=== PATIENT | female | born 1945 ===

== ENCOUNTER 2016-08-10 17:34 | Inpatient (IN) ==
--- NOTE | 2016-08-10 18:53 | XRay Report ---
History is chest pain and shortness of breath Comparison 04/26/2016 The heart is normal in size the Mediport catheter present. Hilar contours unchanged The lungs are mildly under aerated with mild patchy and strandy opacities in both lung bases mildly less pronounced than on the prior studies. The upper lung zones are clear. Impression: Mild patchy bilateral basilar pulmonary opacities less pronounced than on the prior study. Numerous nodules seen in these areas on prior CT. No new parenchymal opacities seen PROCEDURE INTERPRETED AT [facility] DEPARTMENT OF RADIOLOGY Final Report Signed by: Dr. Sierra López
--- NOTE | 2016-08-10 18:59 | Emergency Department Note ---
IKrzysztof Emily, am scribing for, and in the presence of, Maksim Craig MD 18: 44. Rafa De León Robert M, MD, personally performed the services described in this documentation, ascribed by Irina Blankenship in my presence, and it is both accurate and complete [id number] . Arrival - Arrival Chief Complaint: Non-Specific Stated Complaint: swelling of ankles/cancer patient ED Nursing Triage Note: C/O HAVING ANKLE SWELLING BILATERAL ON SATURDAY., STATES SHE IS CURRENTLY BEING TREATED BY STAGE 4 KIDNEY CANCER, STATES HERE LAST CHEMO WAS IN MAY, ALSO STATES HER EYES ARE BECOMING YELLOW SINCE LAST EVENING, + TEMP., + CHILLS, + HEADACHE, ALSO STATES HER URINE IS DARK BROWN Mode of Arrival: Ambulatory Limitations: No Limitations Source: Patient - History of Present Illness HPI Narrative: Pt is a 71 y/o female who came to ED with c/o swelling in lower extremities, dizziness, and jaundice that has been ongoing since Saturday, August 06, 2016, but has worsened today. Pt is in Stage IV Kidney CA under supervision of Dr. Pelayo. Family states last scan showed that chemo (last in May 2016) was not effective and has stopped due to it spreading and becoming larger. Pt was taking voltaren medication but stopped about 2 weeks ago due to causing acid reflux and abdomen pain. Pt notes she doesn't have those sxs when not taking it. Pt has associated sxs of chills, SHARMA and weight loss and febrile in triage. No other complaint/pain in ED. Onset (ago): day(s) Consistency: constant Severity: moderate Severity scale (1-10): 5 Quality: other (swelling) Allergies/Adverse Reactions: Allergies Allergy/AdvReac Type Severity Reaction Status Date / Time Penicillins Allergy Mild RASH Verified 08/10/16 17:52 sulfamethoxazole Allergy Mild RASH Verified 08/10/16 17:52 [From ] trimethoprim [From ] Allergy Mild RASH Verified 08/10/16 17:52 Home Medications: Home Medications Medication Instructions Recorded Confirmed Type Aspirin [Ecotrin] 81 mg PO DAILY 10/10/15 08/10/16 History Linagliptin [Tradjenta] 5 mg PO DAILY 10/10/15 08/10/16 History Clorazepate [Tranxene] 3.75 mg PO BID PRN 03/07/16 08/10/16 History Ondansetron Odt Tab [Zofran Odt] 8 mg PO Q8H PRN 03/07/16 08/10/16 History Saxagliptin HCl [Onglyza] 5 mg PO DAILY 03/07/16 08/10/16 History Tramadol HCl [Tramadol Tab] 50 - 100 mg PO Q8H PRN 03/07/16 08/10/16 History metFORMIN [Glucophage] 1,000 mg PO BID W/MEALS 03/07/16 08/10/16 History Cyproheptadine Tab [Periactin Tab] 4 mg PO TID 05/16/16 08/10/16 History amLODIPine [Norvasc] 5 mg PO DAILY 05/16/16 08/10/16 History Cyanocobalamin (Vitamin B-12) 5,000 mcg PO DAILY 08/10/16 08/10/16 History [Vitamin B-12] Dexamethasone [Dexamethasone Tab] 2 mg PO DAILY 08/10/16 08/10/16 History Diphenoxylate/Atrop 2.5-0.025 1 tablet PO BID 08/10/16 08/10/16 History [Lomotil Tab] Glipizide [Glipizide ER] 5 mg PO BID 08/10/16 08/10/16 History Hydrocodone/Acetaminophen 1 each PO Q4-6H PRN 08/10/16 08/10/16 History [Hydrocodon-Acetaminophn 10-325] Levofloxacin Tab [Levaquin Tab] 500 mg PO DAILY 08/10/16 08/10/16 History Metoprolol Succinate Xl [Toprol Xl] 50 mg PO DAILY 08/10/16 08/10/16 History Pazopanib HCl [Votrient] 600 mg PO TID 08/10/16 08/10/16 History Zolpidem [Ambien] 5 mg PO BEDTIME PRN 08/10/16 08/10/16 History Review of System - Review of System 12 point system: reviewed and no additional remarkable complaints except as stated - Review of System Constitutional: Present: chills, fever, weakness, weight loss Respiratory: Absent: respiratory distress Cardiovascular: Absent: chest pain Gastrointestinal: Absent: abdominal pain Musculoskeletal: Present: other (edema in lower extremities). Absent: arm pain , back pain, leg pain, neck pain Skin: Present: other (yellowing). Absent: rash Neurological: Present: headache, other (dizziness) Medical,Surgical,& Family Hx - Medical History Cardio: History of: Cardiac Dysrhythmia (heart murmur), Hypertension, Cardiovascular Problems (dr arechiga.) Neurology: No history of: Seizures HEENT: History of: Eye Problem (glasses), HEENT Problems (sinus surgery) Endocrine: History of: Diabetes Mellitus (NIDDM) Respiratory: No history of: Respiratory Problems (sinus surgery. 10 yrs ago. flu vac- yes 2016; pneu vac- yes 2016) Renal: History of: Renal (Kidney) Cancer Gastrointestinal: History of: GERD (rare), GI Problems (constipation) Musculoskeletal: No history of: Musculoskeletal Problems Hematology: History of: Anemia Reproductive: No history of: Reproductive Problems Other: History of: Cancer (kidney, lt lung, pancreas) - Surgical History HEENT Surgeries: Surgical HX of: Eye Surgery (bilateral cataract surgery) Reproductive Surgeries: Surgical HX of;: Hysterectomy - Family History Family History: Reports;: Family Diabetes (brothers), Family Heart Disease ( mother), Family Hypertension (mother) - Social History Smoking Status: Never smoker Frequency of Alcohol Use: None Type of Drug Use: None Exam Vital Signs: Vital Signs Temperature 100.7 F H 08/10/16 18:27 Pulse Rate 78 08/10/16 18:30 Respiratory Rate 16 08/10/16 18:27 Blood Pressure 118/45 08/10/16 18:30 O2 Sat by Pulse Oximetry 100 08/10/16 18:30 - General General appearance: alert, in no apparent distress - Head Head exam: Present: atraumatic, normocephalic - Eye Eye exam: Present: PERRL, EOMI - ENT ENT exam: Present: mucous membranes moist. Absent: mucous membranes dry - Neck Neck exam: Present: full ROM. Absent: tenderness - Chest Chest inspection: Present: symmetric chest wall rise. Absent: tenderness - Respiratory Respiratory exam: Present: normal lung sounds bilaterally. Absent: respiratory distress - Cardiovascular Cardiovascular exam: Present: regular rate, normal rhythm, normal heart sounds - Abdominal Exam Abdominal exam: Present: soft. Absent: tenderness - Extremities Exam Extremities exam: Present: full ROM. Absent: tenderness - Neurological Exam Neurological exam: Present: alert, oriented X3, CN II-XII intact. Absent: motor sensory deficit - Psychiatric Psychiatric exam: Present: normal affect, normal mood - Skin Skin exam: Present: warm. Absent: normal color (jaundice) Course - Reevaluation(s) Reevaluation #1: Patient demonstrates evidence of cholangitis with fever, elevated transaminases and bilirubin, and worsening mass size/load in the pancreatic head although there is no intrahepatic biliary ductal dilatation. I will admit the patient to Dr. Pelayo. Time: 20:19 - Consultations Consultation #1: Discussed the patient with Dr. Pelayo who will admit the patient. Time: 20:18 Results - Labs CBC & BMP: 08/10/16 18:47 08/10/16 18:47 Lab Results: I have reviewed the patients labs Labs: Lab Results WBC 6.9 T/CUMM (4-12) 08/10/16 18:47 RBC 3.79 MC/CUMM (3.8-5.5) L 08/10/16 18:47 Hgb 9.6 GM/DL (12.0-16.0) L 08/10/16 18:47 Hct 30.4 VOL% (35.7-47.0) L 08/10/16 18:47 MCV 80.2 FL (87-102) L 08/10/16 18:47 MCH 25 PG (27-34) L 08/10/16 18:47 MCHC 31.6 GM/DL (32-36) L 08/10/16 18:47 RDW 23.9 % (9.3-17.3) H 08/10/16 18:47 Plt Count 315 T/CUMM (130-400) 08/10/16 18:47 MPV 10.3 FL (9.6-12.0) 08/10/16 18:47 Neut % (Auto) 60.9 % (38.7-73.9) 08/10/16 18:47 Lymph % (Auto) 22.6 % (21.3-54.2) 08/10/16 18:47 [place] % (Auto) 13.5 % (1.7-12.7) H 08/10/16 18:47 Eos % (Auto) 1.7 % (0.00-10.9) 08/10/16 18:47 Baso % (Auto) 0.6 % (0.0-0.8) 08/10/16 18:47 Neut # (Auto) 4.2 10*3/uL (1.4-7.4) 08/10/16 18:47 Lymph # (Auto) 1.6 10*3/uL (1.4-4.0) 08/10/16 18:47 [place] # (Auto) 0.9 10*3/uL (0.11-0.8) H 08/10/16 18:47 Eos # (Auto) 0.1 10*3/uL (0.0-0.87) 08/10/16 18:47 Baso # (Auto) 0.0 10*3/uL (0.0-0.2) 08/10/16 18:47 Immature Gran % 0.7 % 08/10/16 18:47 Nucleated RBC % 0.0 /100WBC 08/10/16 18:47 Immature Gran # 0.05 # 08/10/16 18:47 Nucleated RBCs # 0.00 10*3/uL 08/10/16 18:47 Sodium 134 MMOL/L (136-145) L 08/10/16 18:47 Potassium 4.8 MMOL/L (3.5-5.1) 08/10/16 18:47 Chloride 100 MMOL/L (98-107) 08/10/16 18:47 Carbon Dioxide 22 MMOL/L (21-32) 08/10/16 18:47 Anion Gap 16.8 MMOL/L (5.0-15.0) H 08/10/16 18:47 BUN 22 MG/DL (7-18) H 08/10/16 18:47 Creatinine 1.00 MG/DL (0.55-1.02) 08/10/16 18:47 GFR Calculation 49 ML/MIN 08/10/16 18:47 BUN/Creatinine Ratio 22.00 RATIO (6.00-20.00) H 08/10/16 18:47 Glucose 447 MG/DL (74-106) H 08/10/16 18:47 Calculated Osmolality 289.2 MOS/KG (273-304) 08/10/16 18:47 Calcium 7.9 MG/DL (8.5-10.1) L 08/10/16 18:47 Total Bilirubin 4.80 MG/DL (0.2-1.0) H 08/10/16 18:47 Direct Bilirubin 4.1 MG/DL (0.0-0.20) H 08/10/16 18:47 AST 1060 U/L (0-37) H 08/10/16 18:47 ALT 1149 U/L (13-56) H 08/10/16 18:47 Alkaline Phosphatase 832 U/L (45-117) H 08/10/16 18:47 Total Protein 5.9 G/DL (6.4-8.3) L 08/10/16 18:47 Albumin 2.2 G/DL (3.4-5.0) L 08/10/16 18:47 Globulin 3.7 G/DL (2.3-3.5) H 08/10/16 18:47 Albumin/Globulin Ratio 0.5 RATIO (1.1-2.2) L 08/10/16 18:47 Amylase 33 U/L (25-115) 08/10/16 18:47 Lipase 103.0 U/L (73-393) 08/10/16 18:47 Disposition Clinical Impression: Elevated transaminase level, Hyperbilirubinemia, Stage IV renal cancer Case discussed with: patient, patient's family Disposition: Still a Patient Condition: Stable Time of Disposition: 20:19
[2016-08-10 19:02] LABS: Basophils % 0.6 % (0.0-0.8); Eosinophils # 0.1 10*3/uL (0.0-0.87); Eosinophils % 1.7 % (0.00-10.9); Hematocrit 30.4 VOL% (35.7-47.0); Hemoglobin 9.6 GM/DL (12.0-16.0); Immature Granulocytes % 0.7 %; Immature Granulocytes Absolute 0.05 #; Lymphocytes # 1.6 10*3/uL (1.4-4.0); Lymphocytes % 22.6 % (21.3-54.2); Mean Corpuscular HGB Conc 31.6 GM/DL (32-36); Mean Corpuscular Hemoglobin 25 PG (27-34); Mean Corpuscular Volume 80.2 FL (87-102); Mean Platelet Volume 10.3 FL (9.6-12.0); Monocytes # 0.9 10*3/uL (0.11-0.8); Monocytes % 13.5 % (1.7-12.7); Neutrophils # 4.2 10*3/uL (1.4-7.4); Neutrophils % 60.9 % (38.7-73.9); Platelet Count 315 T/CUMM (130-400); Red Blood Count 3.79 MC/CUMM (3.8-5.5); Red Cell Distribution Width 23.9 % (9.3-17.3); White Blood Count 6.9 T/CUMM (4-12)
[2016-08-10 19:39] LABS: Albumin 2.2 G/DL (3.4-5.0); Bilirubin,Total 4.8 MG/DL (0.2-1.0); Calcium 7.9 MG/DL (8.5-10.1); Osmolality,Calculated 289.2 MOS/KG (273-304); Potassium 4.8 MMOL/L (3.5-5.1); Total Protein 5.9 G/DL (6.4-8.3)
--- NOTE | 2016-08-10 20:11 | Ultrasound Report ---
History is fever and jaundice The liver is 14.4 cm in length. Gallbladder is not well-distended. No shadowing stones seen. Gallbladder wall thickness measures up to 5 mm likely related to incomplete distention No biliary ductal dilatation is seen Multiple lobular solid masses throughout the pancreas measuring up to 3.6 cm No right renal hydronephrosis seen. There is a large, 5.5 cm lobular irregular area of mass effect at the lower pole of the right kidney Visualized IVC and aorta are normal in size Impression: 1. At least 5.5 cm solid mass in the right kidney 2. Multiple up to 3.6 cm masses in the region of the pancreas could be pancreatic masses or adjacent adenopathy 3. Gallbladder wall thickening likely related to incomplete distention PROCEDURE INTERPRETED AT [facility] DEPARTMENT OF RADIOLOGY Final Report Signed by: Dr. Sierra López
[2016-08-10] MEDS ORDERED: traMADol 50 MG TABLET PO PRN (20:23)
[2016-08-10] MEDS ORDERED: ONDANSETRON 4 MG/2 ML VIAL IV PRN (20:23)
[2016-08-10] MEDS ORDERED: ALUMINUM/MAGNES/SIMETH MAX STR 30 ML UDCUP PO PRN (20:23)
[2016-08-10] MEDS ORDERED: TEMAZEPAM 7.5 MG CAPSULE PO PRN (20:23)
[2016-08-10] MEDS ORDERED: diphenhydrAMINE CAP 25 MG CAPSULE PO PRN (20:23)
[2016-08-10] MEDS ORDERED: guaiFENesin 200 MG/10 ML UDCUP PO PRN (20:23)
[2016-08-10] MEDS ORDERED: ALPRAZolam 0.25 MG TABLET PO PRN (20:23)
[2016-08-10] MEDS ORDERED: chlorproMAZINE INJ 50 MG in SODIUM CHLORIDE 0.9% 100 ML IV PRN (20:23)
[2016-08-10] MEDS ORDERED: chlorproMAZINE INJ 25 MG in SODIUM CHLORIDE 0.9% 100 ML IV PRN (20:23)
[2016-08-10] MEDS ORDERED: LACTULOSE 20 GM/30 ML UDCUP PO PRN (20:23)
[2016-08-10] MEDS ORDERED: MYLANTA/LIDO VISC 2:1 300 ML BOTTLE SWISH/SWAL PRN (20:23)
[2016-08-10] MEDS ORDERED: chlorproMAZINE 25 MG TABLET PO PRN (20:23)
[2016-08-10] MEDS ORDERED: MYLANTA/LIDO VISC 2:1 300 ML BOTTLE SWISH/SPIT PRN (20:23)
[2016-08-10] MEDS ORDERED: PROMETHAZINE INJ 25 MG in SODIUM CHLORIDE 0.9% 50 ML IV PRN (20:23)
[2016-08-10] MEDS: metroNIDAZOLE INJ 500 MG in PREMIX 1 EACH IV SCH (21:35)
[2016-08-10] MEDS: SODIUM CHLORIDE 0.9% 1,000 ML IV SCH (21:38)
[2016-08-10] MEDS: CLINDAMYCIN INJ 600 MG in PREMIX 1 EACH IV SCH (21:39)
[2016-08-11] MEDS: CLINDAMYCIN INJ 600 MG in PREMIX 1 EACH IV SCH ×4 (02:45→21:14)
[2016-08-11] MEDS: metroNIDAZOLE INJ 500 MG in PREMIX 1 EACH IV SCH ×3 (05:01→22:04)
[2016-08-11] MEDS: PANTOPRAZOLE 40 MG TABLET PO SCH (09:00)
[2016-08-11] MEDS ORDERED: CLORAZEPATE 3.75 MG TABLET PO PRN (11:28)
[2016-08-11] MEDS ORDERED: ONDANSETRON ODT 4 MG TABLET PO PRN (11:28)
[2016-08-11] MEDS ORDERED: ZALEPLON 5 MG CAPSULE PO PRN (11:28)
[2016-08-11] MEDS ORDERED: IBUPROFEN 400 MG TABLET PO PRN (11:32)
--- NOTE | 2016-08-11 11:37 | Oncology History&Physical ---
Assessment and Plan (1) Abdominal pain Status: Acute Assessment and plan: We will monitor the gallbladder closely. Continue antibiotics. Her fever could also be related to perirectal abscess which was manually drained at bedside by myself this morning. The elevated bilirubin and liver enzymes on give me some concern for autoimmune hepatitis given her prior immunotherapy treatments and I will start on IV steroids for that reason. We will need to closely monitor her blood glucose levels with sliding scale and hepatically dosed glipizide. I am holding her Tradjenta and Metformin at the present time. Current Visit: No History of Present Illness Chief complaint: Abdominal pain History of present illness: Ms. Yin is a 71 year old female With metastatic renal cell carcinoma. The patient received several months of frontline on Depo therapy immunotherapy as treatment for her tumor. In May a CT was notable for progression and she was switched to Votrient approximate 400 mg daily. Date of last office visit is not available at this time. Brought to emergency room with abdominal pain. She did have some tenderness and guarding in right upper quadrant and a gallbladder ultrasound showed thickening but no definite gallstones. She was admitted overnight and placed on antibiotics. Last bowel movement 48 hours ago. Positive for decreased p.o. intake. She also was seen approximately 1 week [facility] She was given antibiotic with 2 doses remaining. By review of home medications this is felt to be levofloxacin. Also of note was a significant elevation in her transaminases and total bilirubin. Her family states she has not taken any oral chemotherapy pills 2 weeks. She has had fever this morning up to 101 with blood cultures and urinalysis ordered. Home Medications Medication Instructions Recorded Confirmed Type Aspirin [Ecotrin] 81 mg PO DAILY 10/10/15 08/10/16 History Linagliptin [Tradjenta] 5 mg PO DAILY 10/10/15 08/10/16 History Clorazepate [Tranxene] 3.75 mg PO BID PRN 03/07/16 08/10/16 History Ondansetron Odt Tab [Zofran Odt] 8 mg PO Q8H PRN 03/07/16 08/10/16 History Saxagliptin HCl [Onglyza] 5 mg PO DAILY 03/07/16 08/10/16 History Tramadol HCl [Tramadol Tab] 50 - 100 mg PO Q8H PRN 03/07/16 08/10/16 History metFORMIN [Glucophage] 1,000 mg PO BID W/MEALS 03/07/16 08/10/16 History Cyproheptadine Tab [Periactin Tab] 4 mg PO TID 05/16/16 08/10/16 History amLODIPine [Norvasc] 5 mg PO DAILY 05/16/16 08/10/16 History Cyanocobalamin (Vitamin B-12) 5,000 mcg PO DAILY 08/10/16 08/10/16 History [Vitamin B-12] Dexamethasone [Dexamethasone Tab] 2 mg PO DAILY 08/10/16 08/10/16 History Diphenoxylate/Atrop 2.5-0.025 1 tablet PO BID 08/10/16 08/10/16 History [Lomotil Tab] Glipizide [Glipizide ER] 5 mg PO BID 08/10/16 08/10/16 History Hydrocodone/Acetaminophen 1 each PO Q4-6H PRN 08/10/16 08/10/16 History [Hydrocodon-Acetaminophn 10-325] Levofloxacin Tab [Levaquin Tab] 500 mg PO DAILY 08/10/16 08/10/16 History Metoprolol Succinate Xl [Toprol Xl] 50 mg PO DAILY 08/10/16 08/10/16 History Pazopanib HCl [Votrient] 600 mg PO TID 08/10/16 08/10/16 History Zolpidem [Ambien] 5 mg PO BEDTIME PRN 08/10/16 08/10/16 History Allergies Allergy/AdvReac Type Severity Reaction Status Date / Time Penicillins Allergy Mild RASH Verified 08/10/16 17:52 sulfamethoxazole Allergy Mild RASH Verified 08/10/16 17:52 [From ] trimethoprim [From ] Allergy Mild RASH Verified 08/10/16 17:52 Medical,Surgical,& Family Hx - Medical History Cardio: History of: Cardiac Dysrhythmia (heart murmur), Hypertension, Cardiovascular Problems (dr arechiga.) Neurology: No history of: Seizures HEENT: History of: Eye Problem (glasses), HEENT Problems (sinus surgery) Endocrine: History of: Diabetes Mellitus (NIDDM) Respiratory: No history of: Respiratory Problems (sinus surgery. 10 yrs ago. flu vac- yes 2015; pneu vac- yes 2016) Renal: History of: Renal (Kidney) Cancer Gastrointestinal: History of: GERD (rare), GI Problems (constipation) Musculoskeletal: No history of: Musculoskeletal Problems Hematology: History of: Anemia Reproductive: No history of: Reproductive Problems Other: History of: Cancer (kidney, lt lung, pancreas) - Surgical History HEENT Surgeries: Surgical HX of: Eye Surgery (bilateral cataract surgery) Reproductive Surgeries: Surgical HX of;: Hysterectomy - Family History Family History: Reports;: Family Diabetes (brothers), Family Heart Disease ( mother), Family Hypertension (mother) - Social History Smoking Status: Never smoker Frequency of Alcohol Use: None Type of Drug Use: None - Constitutional Constitutional: Present: chills, fatigue, fever(s), malaise, weakness - EENT Eye: Absent: loss of vision Ears: Absent: ear discharge, ear pain, tinnitus Nose, mouth and throat: Absent: dysphagia, neck mass, sore throat, vertigo - Cardiovascular Cardiovascular ROS IM: Absent: edema - Respiratory Respiratory: Absent: cough, dyspnea, hemoptysis - Gastrointestinal Gastrointestinal: Present: abdominal pain, change in bowel habits. Absent: constipation, diarrhea - Genitourinary Genitourinary ROS female: Present: dysuria. Absent: hematuria - Musculoskeletal Musculoskeletal ROS: Absent: back pain - Psychiatric Psychiatric General: Absent: anxiety - Hematologic/Lymphatic Hematologic/Lymphatic: Absent: easy bleeding Exam - Constitutional Vitals: Period Temp Pulse Resp BP Sys/Blevins Pulse Ox Last 24 Hr 97.7 F-101.6 F 72-88 16-20 115-176/46-96 96-99 General appearance: no acute distress, under weight - Head Head Exam: Present: normal inspection, normocephalic - Eye Eye Exam: Present: EOMI, scleral icterus. Absent: conjunctival injection, periorbital swelling Pupils: Present: PERRL - ENT ENT exam: Present: normal external ear exam - Neck Neck exam: Present: normal inspection. Absent: lymphadenopathy - Respiratory Respiratory exam: Present: CTAB. Absent: accessory muscle use, chest wall tenderness - Cardiovascular Cardiovascular exam: Present: RRR - GI/Abdominal GI/Abdominal exam: Present: distended, hypoactive bowel sounds, tenderness. Absent: ascites, guarding - Extremities Exam Extremities exam: Present: normal capillary refill. Absent: edema - Neurological Exam Neurological exam: Present: alert, oriented X3 - Psychiatric Psychiatric exam: Present: flat affect - Skin Skin exam: Present: warm, dry Results - Labs CBC & BMP: 08/10/16 18:47 08/10/16 18:47
[2016-08-11 11:40] LABS: Apearance,Urine CLEAR (Clear); Bilirubin,Urine Negative (Negative); Blood, Urine Negative (Negative); Glucose,Urine (UA) >=500 mg/dL (Negative); Hyaline Casts,Urine 3 /LPF (0-3); Ketones,Urine Negative (Negative); Mucus,Urine Occasional /LPF (Occasional); Nitrite,Urine Negative (Negative); Protein,Urine Negative; RBC,Urine 1 /HPF (0-4); Squamous Epithelial Cell,Urine Occasional /HPF (0-10); WBC,Urine 2 /HPF (0-6)
[2016-08-11 11:41] LABS: Urine Color Yellow (Yellow)
[2016-08-11] MEDS: methylPREDNISolone SOD SUC 40 MG/1 ML VIAL IV SCH (12:28)
[2016-08-11] MEDS: INSULIN REGULAR 100 UNIT/ML SUBCUT SCH ×3 (12:33→21:12)
[2016-08-11] MEDS: SODIUM CHLORIDE 0.9% 1,000 ML IV SCH (16:08)
[2016-08-11] MEDS: DIPHENOXYLATE/ATROPINE 2.5-0.025 MG TABLET PO SCH (21:32)
[2016-08-12] MEDS: methylPREDNISolone SOD SUC 40 MG/1 ML VIAL IV SCH ×3 (00:22→23:48)
[2016-08-12] MEDS: CLINDAMYCIN INJ 600 MG in PREMIX 1 EACH IV SCH ×4 (02:43→20:55)
[2016-08-12 05:14] LABS: Basophils % 0.4 % (0.0-0.8); Hematocrit 28.8 VOL% (35.7-47.0); Hemoglobin 9.2 GM/DL (12.0-16.0); Immature Granulocytes % 0.8 %; Immature Granulocytes Absolute 0.04 #; Lymphocytes # 0.6 10*3/uL (1.4-4.0); Lymphocytes % 12.5 % (21.3-54.2); Mean Corpuscular HGB Conc 31.9 GM/DL (32-36); Mean Corpuscular Hemoglobin 25 PG (27-34); Monocytes # 0.2 10*3/uL (0.11-0.8); Monocytes % 4.6 % (1.7-12.7); Neutrophils # 4.1 10*3/uL (1.4-7.4); Neutrophils % 81.7 % (38.7-73.9); Platelet Count 317 T/CUMM (130-400); Red Blood Count 3.69 MC/CUMM (3.8-5.5); Red Cell Distribution Width 23.9 % (9.3-17.3)
[2016-08-12 05:38] LABS: Albumin 2.1 G/DL (3.4-5.0); Bilirubin,Total 6.2 MG/DL (0.2-1.0); Calcium 7.6 MG/DL (8.5-10.1); Osmolality,Calculated 281.2 MOS/KG (273-304); Potassium 4.7 MMOL/L (3.5-5.1); Total Protein 5.6 G/DL (6.4-8.3)
[2016-08-12] MEDS: SODIUM CHLORIDE 0.9% 1,000 ML IV SCH ×2 (06:16→19:05)
[2016-08-12] MEDS: metroNIDAZOLE INJ 500 MG in PREMIX 1 EACH IV SCH ×3 (06:18→21:44)
[2016-08-12 06:20] LABS: Hypochromasia 1+; Microcytosis 1+; Ovalocytes Slight; Platelet Estimate Normal
--- NOTE | 2016-08-12 08:50 | Oncology Progress Note ---
Assessment and Plan (1) Abdominal pain Status: Acute Assessment and plan: We will monitor the gallbladder closely. Continue antibiotics. Her fever could also be related to perirectal abscess which was manually drained at bedside by myself this morning. The elevated bilirubin and liver enzymes on give me some concern for autoimmune hepatitis given her prior immunotherapy treatments and I will start on IV steroids for that reason. We will need to closely monitor her blood glucose levels with sliding scale and hepatically dosed glipizide. I am holding her Tradjenta and Metformin at the present time. Current Visit: No Oncology Subjective PN Interval history: Patient with metastatic renal cell carcinoma admitted with abdominal pain. Fever noted from yesterday with blood cultures negative. Remains on clindamycin and metronidazole. Her gluteal abscess is not draining at this time and is significantly improved. Her abdomen is soft and nontender. Her transaminases have decreased somewhat though her total bilirubin remains elevated. I am concerned about autoimmune hepatitis and am continuing IV steroids. I am adding Lantus 15 units due to poor glycemic control. She is breathing comfortable and is tolerating a regular diet at this time. Exam - Constitutional Vitals: Period Temp Pulse Resp BP Sys/Blevins Pulse Ox Last 24 Hr 97.7 F-100.0 F 18-102 18-24 115-150/58-78 93-99 Results - Labs CBC & BMP: 08/12/16 04:00 08/12/16 04:00
[2016-08-12] MEDS: ASPIRIN EC 81 MG TABLET PO SCH (09:09)
[2016-08-12] MEDS: METOPROLOL SUCCINATE XL 50 MG TABLET PO SCH (09:10)
[2016-08-12] MEDS: amLODIPine 5 MG TABLET PO SCH (09:10)
[2016-08-12] MEDS: PANTOPRAZOLE 40 MG TABLET PO SCH (09:10)
[2016-08-12] MEDS: INSULIN REGULAR 100 UNIT/ML SUBCUT SCH ×5 (09:10→20:54)
[2016-08-12] MEDS: DIPHENOXYLATE/ATROPINE 2.5-0.025 MG TABLET PO SCH ×2 (09:10→20:55)
[2016-08-12] MEDS: INSULIN GLARGINE 100 UNIT/ML SUBCUT SCH (09:11)
[2016-08-12] MEDS: CYANOCOBALAMIN 500 MCG TABLET PO SCH (09:17)
[2016-08-13] MEDS: CLINDAMYCIN INJ 600 MG in PREMIX 1 EACH IV SCH ×4 (02:46→17:06)
[2016-08-13 04:23] LABS: Hematocrit 28.9 VOL% (35.7-47.0); Hemoglobin 9.1 GM/DL (12.0-16.0); Immature Granulocytes % 0.8 %; Immature Granulocytes Absolute 0.06 #; Lymphocytes # 0.6 10*3/uL (1.4-4.0); Lymphocytes % 7.4 % (21.3-54.2); Mean Corpuscular HGB Conc 31.5 GM/DL (32-36); Mean Corpuscular Hemoglobin 25 PG (27-34); Mean Corpuscular Volume 80.1 FL (87-102); Mean Platelet Volume 10.3 FL (9.6-12.0); Monocytes # 0.7 10*3/uL (0.11-0.8); Monocytes % 8.6 % (1.7-12.7); Neutrophils # 6.5 10*3/uL (1.4-7.4); Neutrophils % 83.2 % (38.7-73.9); Platelet Count 299 T/CUMM (130-400); Red Blood Count 3.61 MC/CUMM (3.8-5.5); Red Cell Distribution Width 24.4 % (9.3-17.3); White Blood Count 7.8 T/CUMM (4-12)
[2016-08-13 04:54] LABS: Bilirubin,Total 4.9 MG/DL (0.2-1.0); Calcium 7.6 MG/DL (8.5-10.1); Osmolality,Calculated 288.2 MOS/KG (273-304); Potassium 5.2 MMOL/L (3.5-5.1); Total Protein 5.4 G/DL (6.4-8.3)
[2016-08-13 05:00] LABS: Platelet Estimate Normal
[2016-08-13 05:01] LABS: Hypochromasia 1+; Microcytosis Slight; Target Cells Slight
[2016-08-13] MEDS: metroNIDAZOLE INJ 500 MG in PREMIX 1 EACH IV SCH ×3 (06:03→21:02)
[2016-08-13] MEDS: INSULIN REGULAR 100 UNIT/ML SUBCUT SCH ×4 (08:19→20:59)
[2016-08-13] MEDS ORDERED: INSULIN GLARGINE 100 UNIT/ML SUBCUT SCH (09:01)
--- NOTE | 2016-08-13 09:08 | Oncology Progress Note ---
Assessment and Plan (1) Abdominal pain Status: Acute Assessment and plan: We will monitor the gallbladder closely. Continue antibiotics. Her fever could also be related to perirectal abscess which was manually drained at bedside by myself this morning. The elevated bilirubin and liver enzymes on give me some concern for autoimmune hepatitis given her prior immunotherapy treatments and I will start on IV steroids for that reason. We will need to closely monitor her blood glucose levels with sliding scale and hepatically dosed glipizide. I am holding her Tradjenta and Metformin at the present time. Current Visit: No Oncology Subjective PN Interval history: Patient with metastatic renal cell carcinoma on second line oral tyrosine kinase inhibitor treatment. History of frontline treatment with several months of immunotherapy with I believe though. She is now admitted with abdominal pain which is better. She has moderate hepatic dysfunction with today's bilirubin level of 5. She is nontender on examination is tolerating regular diet. She is afebrile with negative blood cultures. She has walk without difficulty in the hallways. Her family members remain at bedside. Medications are reviewed with clindamycin changed to every 8 hours due to hepatic dysfunction. We are continuing to treat a small area of perirectal abscess. This very well could have been her source of fever from several days ago. I do not feel she has any significant gallbladder dysfunction at this time. She appears jaundiced but otherwise nontoxic. I will continue IV steroids due to concern of immune related hepatitis from her prior cancer therapy. We are also adjusting both sliding scale and long-acting insulin for appropriate glycemic control Exam - Constitutional Vitals: Period Temp Pulse Resp BP Sys/Blevins Pulse Ox Last 24 Hr 97.0 F-98.2 F 61-72 18-20 100-123/50-56 96-99 Results - Labs CBC & BMP: 08/13/16 04:00 08/13/16 04:00
[2016-08-13] MEDS: METOPROLOL SUCCINATE XL 50 MG TABLET PO SCH (09:39)
[2016-08-13] MEDS: CYANOCOBALAMIN 500 MCG TABLET PO SCH (09:39)
[2016-08-13] MEDS: amLODIPine 5 MG TABLET PO SCH (09:39)
[2016-08-13] MEDS: ASPIRIN EC 81 MG TABLET PO SCH (09:39)
[2016-08-13] MEDS: PANTOPRAZOLE 40 MG TABLET PO SCH (09:39)
[2016-08-13] MEDS: DIPHENOXYLATE/ATROPINE 2.5-0.025 MG TABLET PO SCH ×2 (09:39→20:57)
[2016-08-13] MEDS: INSULIN GLARGINE 100 UNIT/ML SUBCUT SCH (10:08)
[2016-08-13] MEDS: methylPREDNISolone SOD SUC 40 MG/1 ML VIAL IV SCH (11:56)
[2016-08-13] MEDS ORDERED: HEPARIN LOCK FLUSH 500 UNIT/5 ML SYRINGE IV ONE ×2 (15:09→17:05)
[2016-08-14] MEDS: methylPREDNISolone SOD SUC 40 MG/1 ML VIAL IV SCH ×2 (00:46→11:24)
[2016-08-14] MEDS: CLINDAMYCIN INJ 600 MG in PREMIX 1 EACH IV SCH ×3 (00:51→17:54)
[2016-08-14 04:40] LABS: Basophils % 0.1 % (0.0-0.8); Hemoglobin 10.1 GM/DL (12.0-16.0); Immature Granulocytes % 0.6 %; Immature Granulocytes Absolute 0.07 #; Lymphocytes # 0.8 10*3/uL (1.4-4.0); Lymphocytes % 6.8 % (21.3-54.2); Mean Corpuscular HGB Conc 32.6 GM/DL (32-36); Mean Corpuscular Hemoglobin 25 PG (27-34); Mean Corpuscular Volume 77.9 FL (87-102); Mean Platelet Volume 10.4 FL (9.6-12.0); Monocytes # 0.9 10*3/uL (0.11-0.8); Monocytes % 7.6 % (1.7-12.7); Neutrophils # 10.1 10*3/uL (1.4-7.4); Neutrophils % 84.9 % (38.7-73.9); Platelet Count 411 T/CUMM (130-400); Red Blood Count 3.98 MC/CUMM (3.8-5.5); White Blood Count 11.9 T/CUMM (4-12)
[2016-08-14 04:55] LABS: Albumin 2.1 G/DL (3.4-5.0); Bilirubin,Total 4.3 MG/DL (0.2-1.0); Calcium 8.1 MG/DL (8.5-10.1); Osmolality,Calculated 284.4 MOS/KG (273-304); Potassium 5.7 MMOL/L (3.5-5.1); Total Protein 5.6 G/DL (6.4-8.3)
[2016-08-14 05:05] LABS: Hypochromasia 1+
[2016-08-14 05:06] LABS: Microcytosis 1+; Ovalocytes Slight; Platelet Estimate Increased; Target Cells Slight
[2016-08-14] MEDS: metroNIDAZOLE INJ 500 MG in PREMIX 1 EACH IV SCH ×3 (06:31→22:07)
[2016-08-14] MEDS: INSULIN REGULAR 100 UNIT/ML SUBCUT SCH ×4 (08:25→22:06)
--- NOTE | 2016-08-14 08:43 | Oncology Progress Note ---
Assessment and Plan (1) Abdominal pain Status: Acute Assessment and plan: We will monitor the gallbladder closely. Continue antibiotics. Her fever could also be related to perirectal abscess which was manually drained at bedside by myself this morning. The elevated bilirubin and liver enzymes on give me some concern for autoimmune hepatitis given her prior immunotherapy treatments and I will start on IV steroids for that reason. We will need to closely monitor her blood glucose levels with sliding scale and hepatically dosed glipizide. I am holding her Tradjenta and Metformin at the present time. Current Visit: No Oncology Subjective PN Interval history: Patient admitted with abdominal pain. She is clinically improved. Her liver enzymes are trending down. We have attempted to minimize her hepatic drug exposure. We are planning to discharge home on insulin. She remains on IV steroids due to concern for autoimmune hepatitis due to prior immunotherapy. I think 1 or 2 more days with continued downward trends will be satisfactory for this admission. Her liver enzymes will have to come close to normal before I will consider restarting oral chemotherapy Exam - Constitutional Vitals: Period Temp Pulse Resp BP Sys/Blevins Pulse Ox Last 24 Hr 97.4 F-98.4 F 58-63 18-20 103-125/51-76 96-100 Results - Labs CBC & BMP: 08/14/16 04:15 08/14/16 04:15
[2016-08-14] MEDS: INSULIN GLARGINE 100 UNIT/ML SUBCUT SCH (09:25)
[2016-08-14] MEDS: DIPHENOXYLATE/ATROPINE 2.5-0.025 MG TABLET PO SCH ×2 (09:27→22:06)
[2016-08-14] MEDS: amLODIPine 5 MG TABLET PO SCH (09:28)
[2016-08-14] MEDS: ASPIRIN EC 81 MG TABLET PO SCH (09:29)
[2016-08-14] MEDS: PANTOPRAZOLE 40 MG TABLET PO SCH (09:29)
[2016-08-14] MEDS: METOPROLOL SUCCINATE XL 50 MG TABLET PO SCH (09:30)
[2016-08-14] MEDS: CYANOCOBALAMIN 500 MCG TABLET PO SCH (09:49)
[2016-08-14] MEDS ORDERED: HEPARIN LOCK FLUSH 500 UNIT/5 ML SYRINGE IV ONE (16:55)
[2016-08-15] MEDS: methylPREDNISolone SOD SUC 40 MG/1 ML VIAL IV SCH ×2 (00:06→12:24)
[2016-08-15] MEDS: CLINDAMYCIN INJ 600 MG in PREMIX 1 EACH IV SCH ×2 (01:45→10:11)
[2016-08-15 06:14] LABS: Hematocrit 30.2 VOL% (35.7-47.0); Hemoglobin 9.9 GM/DL (12.0-16.0); Immature Granulocytes % 0.6 %; Immature Granulocytes Absolute 0.06 #; Lymphocytes # 0.7 10*3/uL (1.4-4.0); Lymphocytes % 7.3 % (21.3-54.2); Mean Corpuscular HGB Conc 32.8 GM/DL (32-36); Mean Corpuscular Hemoglobin 26 PG (27-34); Mean Corpuscular Volume 78.2 FL (87-102); Mean Platelet Volume 10.7 FL (9.6-12.0); Monocytes # 0.7 10*3/uL (0.11-0.8); Monocytes % 7.1 % (1.7-12.7); Neutrophils # 8.3 10*3/uL (1.4-7.4); Platelet Count 401 T/CUMM (130-400); Red Blood Count 3.86 MC/CUMM (3.8-5.5); Red Cell Distribution Width 25.5 % (9.3-17.3); White Blood Count 9.7 T/CUMM (4-12)
[2016-08-15] MEDS: metroNIDAZOLE INJ 500 MG in PREMIX 1 EACH IV SCH (06:30)
[2016-08-15 06:39] LABS: Hypochromasia 1+; Microcytosis 1+
[2016-08-15 06:40] LABS: Ovalocytes Slight; Platelet Estimate Increased; Spherocytes Slight; Target Cells Slight
[2016-08-15 06:44] LABS: Albumin 2.1 G/DL (3.4-5.0); Bilirubin,Total 3.4 MG/DL (0.2-1.0); Osmolality,Calculated 285.8 MOS/KG (273-304); Potassium 5.3 MMOL/L (3.5-5.1); Total Protein 5.7 G/DL (6.4-8.3)
[2016-08-15] MEDS ORDERED: HEPARIN LOCK FLUSH 500 UNIT/5 ML SYRINGE IV ONE ×2 (08:01→10:53)
[2016-08-15] MEDS: ASPIRIN EC 81 MG TABLET PO SCH (08:47)
[2016-08-15] MEDS: METOPROLOL SUCCINATE XL 50 MG TABLET PO SCH (08:48)
[2016-08-15] MEDS: PANTOPRAZOLE 40 MG TABLET PO SCH (08:48)
[2016-08-15] MEDS: amLODIPine 5 MG TABLET PO SCH (08:49)
[2016-08-15] MEDS: INSULIN GLARGINE 100 UNIT/ML SUBCUT SCH (08:50)
[2016-08-15] MEDS: INSULIN REGULAR 100 UNIT/ML SUBCUT SCH ×2 (08:51→12:23)
[2016-08-15] MEDS: DIPHENOXYLATE/ATROPINE 2.5-0.025 MG TABLET PO SCH (08:56)
--- NOTE | 2016-08-15 09:27 | Discharge Summary ---
Hospital Course - Hospital Course Hospital Course: Patient with metastatic renal cell carcinoma admitted with abdominal pain. She did have fever with negative blood cultures. Perirectal abscess was examined and manual expression of purulent fluid was performed. She has been afebrile. Her abdominal pain is improved with supportive care. Liver ultrasound showed no gallstones. She does have elevated liver enzymes which have been trending down. We have discontinued most of her medications. She is on oral Votrient chemotherapy which she has not taken in approximately 2 weeks. This will continue to be held and she will see me back next Saturday in the office for repeat blood work. I have placed her on steroids for a concern of autoimmune hepatitis given her previous operative of treatment. Her blood sugars have been grossly elevated and we have instituted Lantus currently at 26 units which will need continued titration at home. Prescriptions also provided for clindamycin 300 mg every 8 hours #15 for further treatment of perirectal process. On examination her abdomen is soft and nontender. She is ambulatory she appears comfortable and nontoxic. She is breathing comfortable on room air with clear breath sounds bilaterally. There is no distention guarding tenderness or rebound of the abdomen Diagnosis - Discharge Diagnosis (1) Abdominal pain Status: Acute Discharge Plan - Discharge Medications New Insulin Glargine [Lantus] 26 unit SUBCUT DAILY 30 Days Ondansetron Odt Tab [Zofran Odt] 8 mg PO Q8H PRN #0 tablet PRN Reason: Nausea Continue Aspirin [Ecotrin] 81 mg PO DAILY Clorazepate [Tranxene] 3.75 mg PO BID PRN PRN Reason: Anxiety Ondansetron Odt Tab [Zofran Odt] 8 mg PO Q8H PRN PRN Reason: Nausea Cyanocobalamin (Vitamin B-12) [Vitamin B-12] 5,000 mcg PO DAILY Diphenoxylate/Atrop 2.5-0.025 [Lomotil Tab] 1 tablet PO BID Metoprolol Succinate Xl [Toprol Xl] 50 mg PO DAILY amLODIPine [Norvasc] 5 mg PO DAILY Discontinued Linagliptin [Tradjenta] 5 mg PO DAILY Saxagliptin HCl [Onglyza] 5 mg PO DAILY Dexamethasone [Dexamethasone Tab] 2 mg PO DAILY Hydrocodone/Acetaminophen [Hydrocodon-Acetaminophn 10-325] 1 each PO Q4-6H PRN PRN Reason: Pain Levofloxacin Tab [Levaquin Tab] 500 mg PO DAILY Pazopanib HCl [Votrient] 600 mg PO TID Zolpidem [Ambien] 5 mg PO BEDTIME PRN PRN Reason: Sleep Cyproheptadine Tab [Periactin Tab] 4 mg PO TID Glipizide [Glipizide ER] 5 mg PO BID No Action metFORMIN [Glucophage] 1,000 mg PO BID W/MEALS Tramadol HCl [Tramadol Tab] 50 - 100 mg PO Q8H PRN PRN Reason: Pain - Follow Up or Referral - Forms/Instructions Exam - Constitutional Vitals: Period Temp Pulse Resp BP Sys/Blevins Pulse Ox Last 24 Hr 97.3 F-98.3 F 54-66 18-22 109-134/53-61 97-100 Discharge Results Procedures and tests throughout hospitalization: Pending Orders 08/11/16 07:58 Blood Culture Stat 08/16/16 04:00 CMP [Comprehensive Metabolic Panel] IN AM Comp Blood Count Auto Diff IN AM Labs on day of discharge: Labs from last 24 hours 08/15/16 08/15/16 08/15/16 07:52 05:53 05:53 WBC 9.7 RBC 3.86 Hgb 9.9 L Hct 30.2 L MCV 78.2 L MCH 26 L MCHC 32.8 RDW 25.5 H Plt Count 401 H MPV 10.7 Neut % (Auto) 85.0 H Lymph % (Auto) 7.3 L [place] % (Auto) 7.1 Eos % (Auto) 0.0 Baso % (Auto) 0.0 Neut # (Auto) 8.3 H Lymph # (Auto) 0.7 L [place] # (Auto) 0.7 Eos # (Auto) 0.0 Baso # (Auto) 0.0 Immature Gran % 0.6 Nucleated RBC % 0.0 Immature Gran # 0.06 Nucleated RBCs # 0.00 Platelet Estimate Increased Hypochromasia 1+ Microcytosis 1+ Spherocytes Slight Target Cells Slight Ovalocytes Slight Morphology Comment Sodium 137 Potassium 5.3 H Chloride 102 Carbon Dioxide 25 Anion Gap 15.3 H BUN 30 H Creatinine 1.00 GFR Calculation 50 BUN/Creatinine Ratio 30.00 H Glucose 231 H POC Glucose 309 H Calculated Osmolality 285.8 Calcium 8.0 L Total Bilirubin 3.40 H AST 228 H ALT 570 H Alkaline Phosphatase 606 H Total Protein 5.7 L Albumin 2.1 L Globulin 3.6 H Albumin/Globulin Ratio 0.5 L 08/14/16 08/14/16 08/14/16 20:56 15:45 13:25 WBC RBC Hgb Hct MCV MCH MCHC RDW Plt Count MPV Neut % (Auto) Lymph % (Auto) [place] % (Auto) Eos % (Auto) Baso % (Auto) Neut # (Auto) Lymph # (Auto) [place] # (Auto) Eos # (Auto) Baso # (Auto) Immature Gran % Nucleated RBC % Immature Gran # Nucleated RBCs # Platelet Estimate Hypochromasia Microcytosis Spherocytes Target Cells Ovalocytes Morphology Comment Sodium Potassium Chloride Carbon Dioxide Anion Gap BUN Creatinine GFR Calculation BUN/Creatinine Ratio Glucose POC Glucose 296 H 349 H 364 H Calculated Osmolality Calcium Total Bilirubin AST ALT Alkaline Phosphatase Total Protein Albumin Globulin Albumin/Globulin Ratio 08/14/16 11:16 WBC RBC Hgb Hct MCV MCH MCHC RDW Plt Count MPV Neut % (Auto) Lymph % (Auto) [place] % (Auto) Eos % (Auto) Baso % (Auto) Neut # (Auto) Lymph # (Auto) [place] # (Auto) Eos # (Auto) Baso # (Auto) Immature Gran % Nucleated RBC % Immature Gran # Nucleated RBCs # Platelet Estimate Hypochromasia Microcytosis Spherocytes Target Cells Ovalocytes Morphology Comment Sodium Potassium Chloride Carbon Dioxide Anion Gap BUN Creatinine GFR Calculation BUN/Creatinine Ratio Glucose POC Glucose 406 H Calculated Osmolality Calcium Total Bilirubin AST ALT Alkaline Phosphatase Total Protein Albumin Globulin Albumin/Globulin Ratio Preliminary micro results at discharge 08/11/16 07:58 Blood Culture - Preliminary Blood No growth at 3 days 08/11/16 08:01 Blood Culture - Preliminary Blood No growth at 3 days DS: Provider Date of admission: 08/10/16 20:23 Primary care physician: Patsy Perez MD Attending physician on admission: Bull Pelayo MD Consults: 08/10/16 21:07 Consult to Pharmacy [CONS] Routine Reason for Pharmacy Consult: Adjust Meds Renal Funct Discharging clinician: Bull Pelayo MD
[2016-08-15] MEDS: CYANOCOBALAMIN 500 MCG TABLET PO SCH (12:23)
[2016-08-15 20:46] VITALS: BP 112/51
== END 2016-08-15 12:35 | disposition home or self-care (01) | DRG 442 ==
LOC: N.ED 17:34 → N.EDINP 20:34 → N.4E 20:39
PROVIDERS: ADMIT Specialist; ATTEND Specialist